=== PATIENT | female | born 1975 | race Caucasian/White ===

== ENCOUNTER 2023-01-05 09:59 | Observation (INO) ==
[2023-01-05 12:16] VITALS: BMI 27.5
[2023-01-05] MEDS ORDERED: TORADOL 30 MG VIAL IVP PRN (12:52)
--- NOTE | 2023-01-05 13:27 | DR.UPDATE ---
H&P Update Prescription drug monitoring program results: PDMP reviewed and no concerns identified H&P Reviewed: Yes Any changes to H&P?: Yes Changes noted:: IS A DIRECT ADMISSION TO THE HOSPITAL FOR FURTHER EVALUATION AND TREATMENT OF RUQ ABDOMINAL PAIN, NAUSEA AND VOMITING, DIARRHEA, AND DEHYDRATION. SHE HAS A PMH OF HYPOTHYROIDISM, INSOMNIA, GERD, TYPE 2 DIABETES, AND HTN. ON ADMISSION, WE WILL OBTAIN A CBC, CMP, AMYLASE LEVEL, LIPASE LEVEL, URINALYSIS, URINE CULTURE. WE WILL ORDER AN ABDOMEN/PELVIS CT WITH CONTRAST TO RULE OUT PANCREATITIS OR OTHER ACUTE FINDINGS. WE WILL START HER ON NORMAL SALINE AT 125ML/HR, ZOFRAN 4MG IV Q4H, AND TORADOL 30MG IV Q6H PRN. WE WILL RESUME HER HOME MEDICATIONS OF RABEPRAZOLE, LOSARTAN, FAMOTIDINE, VITAMIN D2, AND PROGESTERONE. OTHERWISE, WE WILL FOLLOW-UP WITH AM LABS AND CONTINUE TO MONITOR. TIME SPENT ON CLINICAL ASSESSMENT, REVIEWING LABS AND IMAGING, DECISION MAKING, AND DOCUMENTATION GREATER THAN 75 MINUTES. Patient was examined?: Yes
[2023-01-05 13:33] LABS: BASOPHILS % (AUTO) 0.3 % (0.2-1.0); EOSINOPHILS # (AUTO) 0.2 x10^3/uL (0.0-0.2); EOSINOPHILS % (AUTO) 4.3 % (0.9-2.9); HEMOGLOBIN 13.4 g/dL (12.0-16.0); LYMPHOCYTES # (AUTO) 1.9 X10^3/uL (1.3-2.9); LYMPHOCYTES % (AUTO) 34.6 % (21.0-51.0); MEAN CORPUSCULAR HEMOGLOBIN 29.7 pg (27.0-34.0); MEAN CORPUSCULAR HGB CONC 34.2 g/dL (33.0-35.0); MEAN CORPUSCULAR VOLUME 86.6 fL (80.0-100.0); MEAN PLATELET VOLUME 9.3 fL (7.4-11.0); MONOCYTES # (AUTO) 0.5 x10^3/uL (0.3-0.8); MONOCYTES % (AUTO) 9.2 % (0.0-13.0); NEUTROPHILS # (AUTO) 2.8 x10^3/uL (2.2-4.8); NEUTROPHILS % (AUTO) 51.6 % (42.0-75.0); PLATELET COUNT 171 X10^3/uL (150.0-450.0); RED CELL DISTRIBUTION WIDTH 12.9 % (11.6-16.5); WHITE BLOOD COUNT 5.5 X10^3/uL (3.6-10.0)
[2023-01-05 13:49] LABS: ALANINE AMINOTRANSFERASE 49 Units/L (12-78); ALBUMIN 3.4 g/dL (3.4-5.0); ALKALINE PHOSPHATASE 105 Units/L (46-116); AMYLASE 38 Units/L (25-115); ASPARTATE AMINO TRANSFERASE 32 Units/L (15-37); BLOOD UREA NITROGEN 6 mg/dL (7-18); CARBON DIOXIDE 29.7 mmol/L (21-32); CHLORIDE 107 mmol/L (98-107); CREATININE 0.76 mg/dL (0.55-1.02); GLUCOSE 88 mg/dL (65-99); LIPASE 125 Units/L (73-393); POTASSIUM 3.5 mmol/L (3.5-5.1); SODIUM 143 mmol/L (136-145); TOTAL PROTEIN 6.7 g/dL (6.4-8.2); eGFR NON BLACK RACES > 60 (>60)
[2023-01-05] MEDS: ZOFRAN INJ 4 MG VIAL IVP PRN (13:58)
[2023-01-05] MEDS: NS 1,000 ML IV 1,000 ML IV SCH (13:58)
[2023-01-05 16:04] LABS: BILIRUBIN,URINE NEGATIVE (NEGATIVE); BLOOD/HEMOGLOBIN,URINE NEGATIVE (NEGATIVE); GLUCOSE, URINE NEGATIVE (NEGATIVE); KETONES,URINE 3+ (NEGATIVE); LEUKOCYTE ESTERASE ,URINE 1+ (NEGATIVE); NITRITES,URINE NEGATIVE (NEGATIVE); PH,URINE 6.5 (5.0 - 8.0); PROTEIN,URINE 1+ (NEGATIVE); UROBILINOGEN,URINE 2+ (NORMAL)
[2023-01-05 16:13] LABS: APPEARANCE,URINE CLEAR (CLEAR); BACTERIA,URINE TRACE /HPF (NEGATIVE); COLOR,URINE YELLOW (YELLOW); RBC,URINE 0-2 /HPF (0-3); SQUAMOUS EPITHELIAL CELL,UR FEW /HPF (NEGATIVE)
[2023-01-05] MEDS ORDERED: KLOR-CON PO PRN (16:18)
[2023-01-05] MEDS ORDERED: POTASSIUM CHLORIDE LIQ 20 MEQ UDC PO PRN (16:18)
[2023-01-05] MEDS ORDERED: K-DUR TAB 20 MEQ PO PRN (16:18)
[2023-01-05] MEDS ORDERED: MICRO K EXTEN CAP 10 MEQ PO PRN (16:18)
[2023-01-05] MEDS ORDERED: POTASSIUM CHL 40 MEQ/NS 0.45% 500 ML IV PRN (16:18)
[2023-01-05] MEDS ORDERED: K-RIDER 10 MEQ/NS 100 ML 10 MEQ/100 ML BAG IV PRN (16:18)
[2023-01-05] MEDS ORDERED: POTASSIUM CHL 60 MEQ/NS 0.45% 500 ML IV PRN (16:18)
[2023-01-05] MEDS: MAGNESIUM SULFATE 1 GRAM/100 mL PREMIX 1 G/100 ML BAG IV PRN ×2 (17:24→18:43)
--- NOTE | 2023-01-05 20:03 | CT ---
PROCEDURE: CT Abdomen and Pelvis with Contrast .HISTORY: Abdomen pain and dehydration with nausea, vomiting, and diarrhea.TECHNIQUE: Axial images were performed through the abdomen and pelvis with the administration of IV contrast with multiplanar reformations . Oral contrast was administered. Dose reduction techniques including Automated Exposure Control (AEC) and adjustment of mA and kV were utilized .COMPARISON: 05/30/2022.TECHNICAL QUALITY: Satisfactory .FINDINGS:Clear lung bases.Liver, spleen, adrenals, pancreas show no abnormality.Kidneys show no masses or obstruction.Previous cholecystectomy.No ascites or pneumoperitoneum.Mild atherosclerosis aorta.No lymphadenopathy.No bowel obstruction or inflammation and normal appendix.Pelvis shows no masses or free fluid with unremarkable reproductive organs and urinary bladder.No acute bony abnormality.IMPRESSION:No significant abnormality identified.Electronically signed by: Tez Townsend (January 05, 2023 20:01:53)
[2023-01-06] MEDS: NS 1,000 ML IV 1,000 ML IV SCH ×4 (00:12→18:45)
[2023-01-06 06:19] LABS: BASOPHILS % (AUTO) 0.1 % (0.2-1.0); EOSINOPHILS # (AUTO) 0.4 x10^3/uL (0.0-0.2); EOSINOPHILS % (AUTO) 7.2 % (0.9-2.9); HEMATOCRIT 38.3 % (36.0-47.0); HEMOGLOBIN 13.1 g/dL (12.0-16.0); LYMPHOCYTES % (AUTO) 39.5 % (21.0-51.0); MEAN CORPUSCULAR HEMOGLOBIN 29.8 pg (27.0-34.0); MEAN CORPUSCULAR HGB CONC 34.1 g/dL (33.0-35.0); MEAN CORPUSCULAR VOLUME 87.4 fL (80.0-100.0); MEAN PLATELET VOLUME 9.5 fL (7.4-11.0); MONOCYTES # (AUTO) 0.4 x10^3/uL (0.3-0.8); MONOCYTES % (AUTO) 8.1 % (0.0-13.0); NEUTROPHILS # (AUTO) 2.3 x10^3/uL (2.2-4.8); NEUTROPHILS % (AUTO) 45.1 % (42.0-75.0); PLATELET COUNT 176 X10^3/uL (150.0-450.0); RED BLOOD COUNT 4.38 X10^6/uL (3.5-5.4); RED CELL DISTRIBUTION WIDTH 12.8 % (11.6-16.5); WHITE BLOOD COUNT 5.1 X10^3/uL (3.6-10.0)
[2023-01-06 06:29] LABS: ALANINE AMINOTRANSFERASE 46 Units/L (12-78); ALBUMIN 3.2 g/dL (3.4-5.0); ALKALINE PHOSPHATASE 105 Units/L (46-116); ASPARTATE AMINO TRANSFERASE 32 Units/L (15-37); BLOOD UREA NITROGEN 4 mg/dL (7-18); CALCIUM 7.7 mg/dL (8.5-10.1); CARBON DIOXIDE 26.1 mmol/L (21-32); CHLORIDE 107 mmol/L (98-107); COR CA(FOR HYPOALB) 8.3 mg/dL (8.5-10.1); CREATININE 0.75 mg/dL (0.55-1.02); GLUCOSE 77 mg/dL (65-99); MAGNESIUM 1.9 mg/dL (2.0-2.9); POTASSIUM 3.7 mmol/L (3.5-5.1); SODIUM 142 mmol/L (136-145); TOTAL PROTEIN 6.4 g/dL (6.4-8.2); eGFR NON BLACK RACES > 60 (>60)
[2023-01-06] MEDS ORDERED: TESTOSTERONE TOP SCH (09:00)
[2023-01-06] MEDS: PROTONIX TAB 40 MG PO SCH (10:01)
[2023-01-06] MEDS: COZAAR PO SCH (10:01)
[2023-01-06] MEDS ORDERED: PEPCID 20 MG VIAL IVP ONE (11:51)
[2023-01-06] MEDS: ZOFRAN INJ 4 MG VIAL IVP PRN (13:54)
[2023-01-06] MEDS: LIBRAX PO PRN (13:54)
--- NOTE | 2023-01-06 14:02 | PCM.PROG ---
Progress Note - Progress Note for Day of Date of Exam: 01/06/23 - Subjective Subjective: PT IS 47 WF, DIRECT ADMIT FROM DR PASTRANA OFFICE WITH ABDOMINAL PAIN, GERD WITH GASTRITIS AND SUSPECTED PANCREATITIS. PT HAD CT OF ABD/PELVIS ON ADMISSION WITHOUT ACUTE FINDINGS. PT AMYLASE AND LIPASE WERE WITHIN NORMAL RANGE THIS AM. PT REPORTS PMH OF WORSENING GERD SYMPTOMS AND HAS RECENTLY HAD AN EGD BY HER CLAIM ADJUSTER. PT IS ON ACIPHEX AND FAMOTIDINE AT HOME. PT HAS BEEN NPO SINCE ADMISSION WITH CO CONTINUED MID-TO RIGHT UPPER ABDOMINAL PAIN. DISCUSSED ADDING LIBRAX PO AND ADVANCING DIET WITH REASSESSMENT THIS AFTERNOON. - Past Medical Family Social History Past Med/Fam/Surg Hx: No changes since H&P Allergies: Allergies meperidine [From Demerol] Allergy (Verified 01/05/23 11:59) - Review of Systems ROS: No change since H&P - Vital Signs and I&O's Vital Signs: Temperature 97.7 F Pulse Rate [Left] 87 Respiratory Rate 18 Blood Pressure [Left Arm] 157/84 O2 Sat by Pulse Oximetry 97 Intake and Output: Intake & Output 01/04/23 01/05/23 01/06/23 01/07/23 11:59 11:59 11:59 11:59 Intake Total 1670 / 1670 Output Total 200 / 200 Balance 1470 / 1470 - Physical Exam Oriented: Normal Eyes: Normal Ear: Normal Nose: Normal Throat: Normal Respiratory: Normal Cardiovascular: Normal Auscultation: Bowel Sounds: Normal Palpation: Normal Tenderness: RUQ, Epigastric, Moderate Skin: Decreased Turgur Musculoskeletal: Normal Psychiatric: Normal Mood Description: Calm Speech Pattern: Clear, Appropriate - Laboratory and Diagnostics Result Diagrams: 01/06/23 05:43 01/06/23 05:43 Labs: 01/05/23 15:45 Urine,Clean Catch Urine Culture - Preliminary Laboratory WBC 5.1 X10^3/uL (3.6-10.0) 01/06/23 05:43 RBC 4.38 X10^6/uL (3.5-5.4) 01/06/23 05:43 Hgb 13.1 g/dL (12.0-16.0) 01/06/23 05:43 Hct 38.3 % (36.0-47.0) 01/06/23 05:43 MCV 87.4 fL (80.0-100.0) 01/06/23 05:43 MCH 29.8 pg (27.0-34.0) 01/06/23 05:43 MCHC 34.1 g/dL (33.0-35.0) 01/06/23 05:43 RDW 12.8 % (11.6-16.5) 01/06/23 05:43 Plt Count 176 X10^3/uL (150.0-450.0) 01/06/23 05:43 MPV 9.5 fL (7.4-11.0) 01/06/23 05:43 Neut % (Auto) 45.1 % (42.0-75.0) 01/06/23 05:43 Lymph % (Auto) 39.5 % (21.0-51.0) 01/06/23 05:43 Nance % (Auto) 8.1 % (0.0-13.0) 01/06/23 05:43 Eos % (Auto) 7.2 % (0.9-2.9) H 01/06/23 05:43 Baso % (Auto) 0.1 % (0.2-1.0) L 01/06/23 05:43 Neut # (Auto) 2.3 x10^3/uL (2.2-4.8) 01/06/23 05:43 Lymph # (Auto) 2.0 X10^3/uL (1.3-2.9) 01/06/23 05:43 Nance # (Auto) 0.4 x10^3/uL (0.3-0.8) 01/06/23 05:43 Eos # (Auto) 0.4 x10^3/uL (0.0-0.2) H 01/06/23 05:43 Baso # (Auto) 0.0 X10^3/uL (0.0-0.1) 01/06/23 05:43 Absolute Nucleated RBC 0.1 /100WBC 01/06/23 05:43 Sodium 142 mmol/L (136-145) 01/06/23 05:43 Corrected Sodium TNP 01/06/23 05:43 Potassium 3.7 mmol/L (3.5-5.1) 01/06/23 05:43 Chloride 107 mmol/L (98-107) 01/06/23 05:43 Carbon Dioxide 26.1 mmol/L (21-32) 01/06/23 05:43 BUN 4 mg/dL (7-18) L 01/06/23 05:43 Creatinine 0.75 mg/dL (0.55-1.02) 01/06/23 05:43 Est GFR (MDRD) Af Amer > 60 (>60) 01/06/23 05:43 Est GFR (MDRD) Non-Af > 60 (>60) 01/06/23 05:43 Glucose 77 mg/dL (65-99) 01/06/23 05:43 Calcium 7.7 mg/dL (8.5-10.1) L 01/06/23 05:43 Corrected Calcium 8.3 mg/dL (8.5-10.1) L 01/06/23 05:43 Magnesium 1.9 mg/dL (2.0-2.9) L 01/06/23 05:43 Total Bilirubin 0.50 mg/dL (0.2-1.0) 01/06/23 05:43 AST 32 Units/L (15-37) 01/06/23 05:43 ALT 46 Units/L (12-78) 01/06/23 05:43 Alkaline Phosphatase 105 Units/L (46-116) 01/06/23 05:43 Total Protein 6.4 g/dL (6.4-8.2) 01/06/23 05:43 Albumin 3.2 g/dL (3.4-5.0) L 01/06/23 05:43 Globulin 3.2 g/dL (2.5-4.5) 01/06/23 05:43 Albumin/Globulin Ratio 1.0 Ratio (1.1-2.1) L 01/06/23 05:43 Amylase 38 Units/L (25-115) 01/05/23 13:12 Lipase 125 Units/L (73-393) 01/05/23 13:12 Specimen Type Clean catch urine 01/05/23 15:45 Urine Color Yellow (YELLOW) 01/05/23 15:45 Urine Appearance Clear (CLEAR) 01/05/23 15:45 Urine pH 6.5 (5.0 - 8.0) 01/05/23 15:45 Ur Specific [place] 1.015 (1.000-1.030) 01/05/23 15:45 Urine Protein 1+ (NEGATIVE) 01/05/23 15:45 Urine Glucose (UA) Negative (NEGATIVE) 01/05/23 15:45 Urine Ketones 3+ (NEGATIVE) 01/05/23 15:45 Urine Blood Negative (NEGATIVE) 01/05/23 15:45 Urine Nitrite Negative (NEGATIVE) 01/05/23 15:45 Urine Bilirubin Negative (NEGATIVE) 01/05/23 15:45 Urine Urobilinogen 2+ (NORMAL) 01/05/23 15:45 Ur Leukocyte Esterase 1+ (NEGATIVE) 01/05/23 15:45 Urine RBC 0-2 /HPF (0-3) 01/05/23 15:45 Urine WBC 3-5 /HPF (0-5) 01/05/23 15:45 Ur Squamous Epith Cells Few /HPF (NEGATIVE) 01/05/23 15:45 Urine Bacteria Trace /HPF (NEGATIVE) 01/05/23 15:45 Urine Mucus Moderate /HPF (NEGATIVE) 01/05/23 15:45 Ur Culture Indicated? Yes/culture set up 01/05/23 15:45 - Plan (1) Acute gastritis Status: Acute Plan: CONTINUE IV HYDRATION. PPI THERAPY, IV PEPCID. BP MONITORING, STOOL CULTURES. BS CONTROL, ADVANCE DIET TO CLEAR LIQUID (2) GERD (gastroesophageal reflux disease) Status: Acute (3) Type 2 diabetes mellitus Status: Acute
[2023-01-06] MEDS: MAGNESIUM SULFATE 1 GRAM/100 mL PREMIX 1 G/100 ML BAG IV PRN ×2 (15:01→16:08)
[2023-01-06] MEDS ORDERED: PEPCID TAB 40 MG PO SCH (21:00)
[2023-01-07] MEDS: NS 1,000 ML IV 1,000 ML IV SCH ×2 (04:11→05:55)
[2023-01-07 05:18] LABS: BASOPHILS % (AUTO) 0.1 % (0.2-1.0); EOSINOPHILS # (AUTO) 0.4 x10^3/uL (0.0-0.2); EOSINOPHILS % (AUTO) 8.9 % (0.9-2.9); HEMATOCRIT 36.2 % (36.0-47.0); HEMOGLOBIN 12.4 g/dL (12.0-16.0); LYMPHOCYTES # (AUTO) 1.7 X10^3/uL (1.3-2.9); LYMPHOCYTES % (AUTO) 39.2 % (21.0-51.0); MEAN CORPUSCULAR HEMOGLOBIN 29.8 pg (27.0-34.0); MEAN CORPUSCULAR HGB CONC 34.3 g/dL (33.0-35.0); MEAN CORPUSCULAR VOLUME 86.8 fL (80.0-100.0); MEAN PLATELET VOLUME 9.6 fL (7.4-11.0); MONOCYTES # (AUTO) 0.4 x10^3/uL (0.3-0.8); MONOCYTES % (AUTO) 8.7 % (0.0-13.0); NEUTROPHILS # (AUTO) 1.9 x10^3/uL (2.2-4.8); NEUTROPHILS % (AUTO) 43.1 % (42.0-75.0); PLATELET COUNT 165 X10^3/uL (150.0-450.0); RED BLOOD COUNT 4.17 X10^6/uL (3.5-5.4); WHITE BLOOD COUNT 4.4 X10^3/uL (3.6-10.0)
[2023-01-07 05:32] LABS: ALANINE AMINOTRANSFERASE 41 Units/L (12-78); ALKALINE PHOSPHATASE 97 Units/L (46-116); ASPARTATE AMINO TRANSFERASE 26 Units/L (15-37); BLOOD UREA NITROGEN 3 mg/dL (7-18); CALCIUM 7.8 mg/dL (8.5-10.1); CARBON DIOXIDE 26.9 mmol/L (21-32); CHLORIDE 109 mmol/L (98-107); COR CA(FOR HYPOALB) 8.6 mg/dL (8.5-10.1); CREATININE 0.76 mg/dL (0.55-1.02); GLUCOSE 78 mg/dL (65-99); POTASSIUM 3.8 mmol/L (3.5-5.1); SODIUM 142 mmol/L (136-145); eGFR NON BLACK RACES > 60 (>60)
[2023-01-07] MEDS: COZAAR PO SCH (08:40)
[2023-01-07] MEDS: PROTONIX TAB 40 MG PO SCH (08:40)
[2023-01-07 09:52] VITALS: O2SAT 100
[2023-01-07] MEDS: LIBRAX PO PRN (13:19)
[2023-01-07 14:23] VITALS: BP 172/93; PULSE 74; TEMP 97.9
[2023-01-07] MEDS ORDERED: TESTOSTERONE TOP SCH (21:00)
== END 2023-01-07 13:15 | disposition home or self-care (01) ==
LOC: MED/SURG
PROVIDERS: ADMIT Internal Medicine; ATTEND Internal Medicine
DX: E86.0 Dehydration; K29.60 Other gastritis without bleeding; R19.7 Diarrhea, unspecified; E11.43 Type 2 diabetes mellitus with diabetic autonomic (poly)neuropathy; E03.8 Other specified hypothyroidism; R10.11 Right upper quadrant pain; I10 Essential (primary) hypertension; K21.9 Gastro-esophageal reflux disease without esophagitis; R11.2 Nausea with vomiting, unspecified; K31.84 Gastroparesis; E11.65 Type 2 diabetes mellitus with hyperglycemia; K52.89 Other specified noninfective gastroenteritis and colitis